=== PATIENT | female | born 1990 | race Caucasian/White ===

== ENCOUNTER 2024-09-07 04:25 | Outpatient (CLI) | payer OTHER, SELFPAY ==
[2024-09-07 15:11] LABS: HCT 35.6 % (36.0-46.0); HGB 11.5 g/dL (11.2-15.7); MCH 29.6 pg (27.0-33.0); MCHC 32.3 % (32.0-36.0); MCV 92 fL (80-95); MPV 10.4 fL (8.0-11.0); Platelet Count 234 10^3/uL (130-400); RBC 3.88 10^6/uL (3.93-5.22); RDW 13.0 % (11.7-14.6); RDW-SD 43.0 fL; WBC 16.15 10^3/uL (4.4-10.8)
[2024-09-07 15:26] LABS: Glucose,1 Hr (Glucola) 135 mg/dL (80-140)
== END 2024-09-07 04:26 | disposition home or self-care (01) ==
PROVIDERS: Visit Provider Advanced Practice Midwife
DX: Z34.92 Encounter for supervision of normal pregnancy, unspecified, second trimester (principal)
CPT/HCPCS: 36415; 82950; 85027; 86850; 86900; 86901

== ENCOUNTER 2024-09-14 03:42 | Outpatient (CLI) | payer OTHER, SELFPAY ==
[2024-09-14 08:26] LABS: Abs Immature Grans 0.32 10^3/uL (0.0-0.06); HCT 36.7 % (36.0-46.0); HGB 12.0 g/dL (11.2-15.7); Immature Grans % 2.2 %; MCH 29.6 pg (27.0-33.0); MCHC 32.7 % (32.0-36.0); MCV 91 fL (80-95); MPV 10.3 fL (8.0-11.0); Platelet Count 212 10^3/uL (130-400); RBC 4.05 10^6/uL (3.93-5.22); RDW 12.8 % (11.7-14.6); RDW-SD 42.0 fL; WBC 14.60 10^3/uL (4.4-10.8)
[2024-09-14 10:20] LABS: Glucose 1 Hour 151 mg/dL
== END 2024-09-14 03:43 | disposition home or self-care (01) ==
PROVIDERS: Visit Provider Advanced Practice Midwife
DX: O09.522 Supervision of elderly multigravida, second trimester (principal); D72.829 Elevated white blood cell count, unspecified
CPT/HCPCS: 36415; 82951; 85025

== ENCOUNTER 2024-10-12 01:49 | Outpatient (CLI) | payer OTHER, SELFPAY ==
--- NOTE | 2024-10-12 08:15 | DI.US_ITS ---
Exam(s) US OB JOSEFA WEIGHT EXAM: US OB JOSEFA WEIGHT CLINICAL HISTORY: Advanced maternal age,O09.529. TECHNIQUE: Transabdominal obstetrical ultrasound was performed. COMPARISON: No exams were available for comparison FINDINGS: There is a single viable intrauterine gestation with cardiac activity identified-118 bpm The fetus is presently in cephalic position . Amniotic fluid: There is a normal amount of amniotic fluid with an JOSEFA of 13.39cm. Placental location: The placenta is posterior grade 2,with no evidence of placenta previa. Dating parameters place this at approximately 32 weeks and 3 days gestational age, implying THADDEUS of 12/04/2024. BPD measures 32 weeks and 4 days HC measures 32 weeks and 6 days AC measures 32 weeks and 1 day FL measures 32 weeks and 1 day Estimated weight is 1933 gm-4 pounds 4 ounces Fetus is at the 42nd percentile on the Hadlock scale. IMPRESSION:: Viable 3rd trimester gestation, as described above. DATA REPOSITORY:
== END 2024-10-12 02:09 ==
LOC: DI 01:49
PROVIDERS: Visit Provider Obstetrics & Gynecology
DX: O09.523 Supervision of elderly multigravida, third trimester (principal); Z3A.32 32 weeks gestation of pregnancy
CPT/HCPCS: 76816

== ENCOUNTER 2024-11-09 17:22 | Outpatient (REF) | payer OTHER, SELFPAY | END 2024-11-09 17:23 | disposition home or self-care (01) | LOC: LBN 17:22 | PROVIDERS: Visit Provider Obstetrics & Gynecology | DX: Z34.93 Encounter for supervision of normal pregnancy, unspecified, third trimester (principal) | CPT/HCPCS: 87081 ==

== ENCOUNTER 2024-11-30 07:19 | Outpatient (CLI) | payer OTHER, SELFPAY ==
[2024-11-30 15:57] VITALS: BP 120/66; PULSE 110; TEMP 209.5; TEMP 98.6
--- NOTE | 2024-12-01 07:36 | W.OBNST ---
Date of service: 11/30/24 Time of Service: 17:00 NST Evaluation Reason for NST Reasons for Nonstress Test: ADVANCED MATERNAL AGE Gestational Age Gestational Age in Weeks and Days: 39 Weeks and 1Days Test and Monitor Explained Test/Monitor Explained: Test Explained, Monitor Explained and Patient Verbalized Understanding Vital Signs Blood Pressure: 120/66 Pulse: 110 Temperature: 209.5 F Urine Results Urine Protein: Negative Urine Ketones: Positive Urine Glucose: Negative Urine Blood: Negative NST Information Date on Monitor: 11/30/24 Time on Monitor: 16:05 Date off Monitor: 11/30/24 Time off Monitor: 16:25 Total Time on Monitor: 20 NST Interventions: PO Hydration NST Evaluation Patient States Movement: Present Variability: Moderate 6-25 bpm Accelerations: 15x15 Decelerations: None NST Results: Reactive Note Ultrasound Done: N/A. NST Note Note: Category 1, reactive NST NST Reviewed and Verified by: Chrissy Valdez
[2024-12-01 07:37] VITALS: BP 120/66; PULSE 110; TEMP 209.5; TEMP 98.6
== END 2024-11-30 16:36 ==
LOC: BCD 07:19 → OBS 15:27
PROVIDERS: Visit Provider Obstetrics & Gynecology
DX: Z3A.39 39 weeks gestation of pregnancy (principal); O09.523 Supervision of elderly multigravida, third trimester
CPT/HCPCS: 59025

== ENCOUNTER 2024-12-04 13:05 | Inpatient (IN) | payer OTHER, SELFPAY ==
--- NOTE | 2024-11-30 16:08 | W.PM.OBHPL1 ---
Date of service: 11/30/24 Time of Service: 16:09 Assessment and Plan Assessment and plan (1) Encounter for induction of labor: Status: Acute Assessment and plan: Schedule labor induction due to advanced maternal age at 39 weeks and 5 days. Cervical ripening followed by Pitocin augmentation as needed. Pain control as needed. (2) AMA (advanced maternal age) multigravida 35+: Status: Acute OB-HPI Labor/Delivery History of Present Illness Reason for Visit: per Cleo Chief Complaint: Scheduled Induction of Labor (Advanced maternal age) Indication for Induction: Other. THADDEUS Calculator Estimated Delivery Date Method Current WG Current Estimate 12/06/24 Ultrasound #1 39w 1d Other Estimates 11/27/24 LMP (Certain) 40w 3d 12/03/24 Ultrasound #2 39w 4d 12/07/24 Conception 39w 0d Comments: Patient will present to the presenter on 12/04/2024 for induction of labor. Treated with 39 weeks and 4 days at that point. Previous cervical examination revealed a cervix that was soft, 50%, mid position. Cervical ripening will be undertaken initially with misoprostol, followed by Enriquez balloon if necessary. All questions were answered. The risk, benefits, and alternatives were discussed. History of Present Expected Delivery Route/Plan MD care FOB - Jong - Apha 1 antitrypsin carrier (this is his first child). he has hypertension. Transferred care from [place] at 25 weeks [facility] Specific Issues/Plan 1. AMA - normal genetic testing. 32 week growth US vtx, 41 % 2. 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 3. Increased preeclampsia risk - taking ASA daily. 4. glucola at 27 wks 135, 3 hr GTT nml x4 5. WBC at 27 wks 16, will recheck in 1 wk=14.6 *Scheduled for NST on Thursday, 11/30 and IOL on 12/04 at 1 pm. Informed Consent Informed Consent: Induction of Labor Review of Systems All systems reviewed & are unremarkable except as noted in HPI and below Eyes Eyes: Reports as per HPI and Reports system reviewed and no additional complaints, except as documented ENT Ears, Nose, Mouth, and Throat: Reports system reviewed and no additional complaints, except as documented and Reports as per HPI Cardiovascular Cardiovascular: Reports system reviewed and no additional complaints, except as documented, Denies chest pain and Denies irregular heart rhythm Respiratory Respiratory: Reports system reviewed and no additional complaints, except as documented, Denies chest congestion and Denies cough Gastrointestinal Gastrointestinal: Reports system reviewed and no additional complaints, except as documented Genitourinary Genitourinary: Reports system reviewed and no additional complaints, except as documented Neurologic Neurologic: Reports system reviewed and no additional complaints, except as documented PFSH All Active Problems (Updated 11/30/24 @ 16:12 by Chrissy Valdez DO) Encounter for induction of labor (Acute) Leukocytosis, unspecified (Acute) AMA (advanced maternal age) multigravida 35+ (Acute) (Acute) Medical History (Updated 11/30/24 @ 16:12 by Chrissy Valdez DO) High cholesterol while on OCs.HDL high 200s. 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 Sexually active: Yes Current gender identity: female What is your relationship status?: Panel score (0-1 are the most socially isolated patients): 1 What type of physical activity do you participate in: regular exercise Duration: 30-45 minutes/day Frequency: daily Seatbelt use: always Helmet use: Yes Do you feel safe at home: Yes History History 2 Para 0 Hx # Term Pregnancies Multiple births Hx # Pregnancies Ectopic pregnancies AB induced Hx Number of Living Children AB spontaneous 2 Meds Allergies and Home Medications Allergies Allergy/AdvReac Type Severity Reaction Status Date / Time No Known Allergies Allergy Verified 11/30/24 15:46 Home Medications ?Medication ?Instructions ?Recorded ?Confirmed ?Type aspirin 81 mg tablet 81 mg PO DAILY 08/25/24 11/30/24 History fexofenadine 60 mg tablet (Ruby 60 mg PO DAILY 08/25/24 11/30/24 History Allergy) vits no.126-ferrous fum tab PO DAILY 08/25/24 11/30/24 History 28 mg iron-folic acid 800 mcg tablet (Classic ) RSV vac, preF A and preF B(PF) 120 0.5 ml IM ONCE #1 ea 11/15/24 11/30/24 Rx mcg/0.5 mL IM solution (Abrysvo (PF)) Exam Physical Exam Vital signs: blood pressure is 120/72. heart tones 130s Vital Signs Reviewed: Yes Constitutional Constitutional: no acute distress Detailed Labor and Delivery Exam Dilation: 0.05 station: -2 Cervix position: anterior Consistency: soft Domínguez Score: Cervical Points Exam 0 1 2 3 Dilation Closed 1-2cm 3-4 cm 5-6cm Effacement 0-30% 40-50% 60-70% 80% Consistency Firm Medium Soft Station -3 -2 -1,0 +1,+2 Position Posterior Mid Anterior DOMÍNGUEZ Score(Cervical Ripeness Score): 5 Amniotic Membrane Status: Intact HEENT Exam HEENT Exam: Normal Neck Exam Neck Exam: Normal Chest/Brest/Axilla Exam Chest Exam: Normal Respiratory Exam Respiratory Exam: Normal Cardiovascular Exam Cardiovascular Exam: Normal Abdominal Exam Abdominal Exam: Normal (Gravid, vertex, fundal height 37 cm) Exam Exam: Normal Extremities Exam Extremities Exam: Normal Back/Spine/Pelvis Exam Pelvis Adequate: Yes Psychiatric Exam Psychiatric Exam: Normal Risk Assessment Risk for Pre-Eclampsia Date Initiated/Initials: Taking ASA Yes, if one or more: NEGATIVE FOR: Hx Pre-E/Gest HTN, Chronic HTN, Multiple Gestation, Pre-gestational DM, Renal Disease, Systemic Lupus or APA Syndrome Yes, if 2 or more: POSITIVE FOR: Nulliparity and Age>= 35 yrs; NEGATIVE FOR: >10yr btwn pregnancies, BMI>30, ethinicty, Mother/Sister w/ Pre-E or Previous IUGR Risk for Post- Hemorrhage Initial: NEGATIVE FOR: Multiple Gestation, Previous PPH, Known Clotting Deficiency, Grand Multiparity or Anticoagulation Risks Reviewed Risks Reviewed Upon Admission: Yes
[2024-12-04] VITALS (30 sets, daily range): BP systolic 102–127; BP diastolic 57–79; PULSE 75–103; RESP 16; TEMP 36.4–36.9; O2SAT 95–98
[2024-12-04 14:14] LABS: Abs Immature Grans 0.22 10^3/uL (0.0-0.06); HCT 38.5 % (36.0-46.0); HGB 12.7 g/dL (11.2-15.7); Immature Grans % 1.7 %; MCH 29.1 pg (27.0-33.0); MCHC 33.0 % (32.0-36.0); MCV 88 fL (80-95); MPV 10.2 fL (8.0-11.0); Platelet Count 212 10^3/uL (130-400); RBC 4.36 10^6/uL (3.93-5.22); RDW 13.7 % (11.7-14.6); RDW-SD 44.1 fL; WBC 13.18 10^3/uL (4.4-10.8)
[2024-12-04] MEDS: Normal Saline Flush 10 ML SYR IVP (15:10)
[2024-12-04] MEDS: miSOPROStol 25 MCG TAB VG ×2 (15:22→20:15)
--- NOTE | 2024-12-04 15:34 | W.PM.OBNL1 ---
Date of service: 12/04/24 Time of Service: 15:34 Informed Consent Informed Consent: Induction of Labor Pelvic Exam Dilation: 0.5 Effacement (%): 50 station: -2 Cervix Position: posterior Consistency: soft Fetus A Monitor: External (US) Heart Rate Baseline: 120 Presentation: Vertex Variability: Moderate (6-25 BPM) Assessment and Plan Assessment and plan (1) AMA (advanced maternal age) multigravida 35+: Status: Acute Assessment and plan: Labor induction at term due to advanced maternal age. Misoprostol first. Pitocin versus Enriquez balloon will follow. All questions answered. (2) Encounter for induction of labor: Status: Acute Objective Abnormal lab results 12/04/24 Range/Units 14:05 WBC 13.18 H (4.4-10.8) 10^3/uL Absolute Neutrophils 9.81 H (1.2-6.7) 10^3/uL Temp Pulse Resp BP 97.5 F L 103 H 16 110/75 12/04/24 13:04 12/04/24 15:25 12/04/24 13:04 12/04/24 15:25 Laboratory Results WBC 13.18 10^3/uL (4.4-10.8) H 12/04/24 14:05 RBC 4.36 10^6/uL (3.93-5.22) 12/04/24 14:05 Hgb 12.7 g/dL (11.2-15.7) 12/04/24 14:05 Hct 38.5 % (36.0-46.0) 12/04/24 14:05 MCV 88 fL (80-95) 12/04/24 14:05 MCH 29.1 pg (27.0-33.0) 12/04/24 14:05 MCHC 33.0 % (32.0-36.0) 12/04/24 14:05 RDW 13.7 % (11.7-14.6) 12/04/24 14:05 Plt Count 212 10^3/uL (130-400) 12/04/24 14:05 MPV 10.2 fL (8.0-11.0) 12/04/24 14:05 Immature Gran % 1.7 % 12/04/24 14:05 Neutrophils % 74.4 % 12/04/24 14:05 Lymphocytes % 17.8 % 12/04/24 14:05 Monocytes % 5.0 % 12/04/24 14:05 Eosinophils % 0.6 % 12/04/24 14:05 Basophils % 0.5 % 12/04/24 14:05 Nucleated RBC % 0.0 % (0.0-0.3) 12/04/24 14:05 Absolute Neutrophils 9.81 10^3/uL (1.2-6.7) H 12/04/24 14:05 Absolute Lymphocytes 2.35 10^3/uL (1.2-3.4) 12/04/24 14:05 Absolute Monocytes 0.66 10^3/uL (0.1-0.8) 12/04/24 14:05 Absolute Eosinophils 0.08 10^3/uL (0.0-0.7) 12/04/24 14:05 Absolute Basophils 0.07 10^3/uL (0.0-0.2) 12/04/24 14:05 ABO/Rh A Positive 12/04/24 14:05 Antibody Screen NEGATIVE 12/04/24 14:05 Objective Narrative Objective Narrative: Patient seen and examined. Doing well. Nasal Postel, first dose 25 mcg intravaginally placed without difficulty. Subjective Interval history since last seen: Patient seen and examined this afternoon. Doing well. heart rate tracing is a category 1 strip. She has occasional irregular contractions. Otherwise she is feeling well. She is here for labor induction at term due to advanced maternal age. Her cervix was checked and fingertip, 50%, posterior, attempt at Cook catheter unsuccessful. Will give 1 dose of misoprostol, 25 mcg vaginally and reassess in 3 to 4 hours. Results Hemoglobin/Hematocrit: Hgb 12.7 g/dL (11.2-15.7) 12/04/24 14:05 Hct 38.5 % (36.0-46.0) 12/04/24 14:05 Abnormal Lab Findings: Abnormal Labs 12/04/24 14:05 WBC 13.18 H Absolute Neutrophils 9.81 H
--- NOTE | 2024-12-04 20:38 | W.PM.OBNL1 ---
Date of service: 12/04/24 Time of Service: 20:38 Informed Consent Informed Consent: Induction of Labor Pelvic Exam Dilation: 1 Effacement (%): 50 station: -2 Cervix Position: anterior Consistency: soft Assessment and Plan Assessment and plan (1) AMA (advanced maternal age) multigravida 35+: Status: Acute Assessment and plan: Labor induction at term due to advanced maternal age. Enriquez balloon inserted without difficulty. Postel, dose #2 given intravaginally. Continue to monitor. Anticipate vaginal . Pain control as desired. (2) Encounter for induction of labor: Status: Acute Objective Abnormal lab results 12/04/24 Range/Units 14:05 WBC 13.18 H (4.4-10.8) 10^3/uL Absolute Neutrophils 9.81 H (1.2-6.7) 10^3/uL Temp Pulse Resp BP 97.5 F L 92 H 16 116/71 12/04/24 13:04 12/04/24 19:14 12/04/24 13:04 12/04/24 19:14 Laboratory Results WBC 13.18 10^3/uL (4.4-10.8) H 12/04/24 14:05 RBC 4.36 10^6/uL (3.93-5.22) 12/04/24 14:05 Hgb 12.7 g/dL (11.2-15.7) 12/04/24 14:05 Hct 38.5 % (36.0-46.0) 12/04/24 14:05 MCV 88 fL (80-95) 12/04/24 14:05 MCH 29.1 pg (27.0-33.0) 12/04/24 14:05 MCHC 33.0 % (32.0-36.0) 12/04/24 14:05 RDW 13.7 % (11.7-14.6) 12/04/24 14:05 Plt Count 212 10^3/uL (130-400) 12/04/24 14:05 MPV 10.2 fL (8.0-11.0) 12/04/24 14:05 Immature Gran % 1.7 % 12/04/24 14:05 Neutrophils % 74.4 % 12/04/24 14:05 Lymphocytes % 17.8 % 12/04/24 14:05 Monocytes % 5.0 % 12/04/24 14:05 Eosinophils % 0.6 % 12/04/24 14:05 Basophils % 0.5 % 12/04/24 14:05 Nucleated RBC % 0.0 % (0.0-0.3) 12/04/24 14:05 Absolute Neutrophils 9.81 10^3/uL (1.2-6.7) H 12/04/24 14:05 Absolute Lymphocytes 2.35 10^3/uL (1.2-3.4) 12/04/24 14:05 Absolute Monocytes 0.66 10^3/uL (0.1-0.8) 12/04/24 14:05 Absolute Eosinophils 0.08 10^3/uL (0.0-0.7) 12/04/24 14:05 Absolute Basophils 0.07 10^3/uL (0.0-0.2) 12/04/24 14:05 ABO/Rh A Positive 12/04/24 14:05 Antibody Screen NEGATIVE 12/04/24 14:05 Subjective Interval history since last seen: Patient seen and examined. Feeling occasional contractions. Speculum inserted for placement of Cook balloon. 60 cc of saline in the uterine balloon and 60 cc of saline in the vaginal balloon. Patient tolerated procedure without difficulty. heart rate in the 1 teens to 120s with moderate variability overall reassuring. Doing well. Vital signs are stable. Anticipate vaginal . Results Hemoglobin/Hematocrit: Hgb 12.7 g/dL (11.2-15.7) 12/04/24 14:05 Hct 38.5 % (36.0-46.0) 12/04/24 14:05 Abnormal Lab Findings: Abnormal Labs 12/04/24 14:05 WBC 13.18 H Absolute Neutrophils 9.81 H
[2024-12-04] MEDS: Lactated Ringers 1,000 ML 500 ML IV (22:30)
[2024-12-04] MEDS: FentaNYL/ROPIvacaine 2 mcg/ml and 0.1% 200 ML CADD Cassette EP (23:40)
--- NOTE | 2024-12-04 23:45 | ANES.NEUR_ITS ---
Epidural/Spinal Catheter Date Performed: 12/04/24 Procedure Start: 22:55 Procedure Stop: 23:40 Requesting Provider: Chrissy Valdez Procedure Location: Obstetrics Reason Performed: Labor Epidural Standard Monitors Applied: Blood Pressure, SpO2 and See EMR for corresponding vital signs Patient Position: Sitting Sedation Given (Indicate Dose Given): No Sedation given Patient Mental Status: Awake Sterility: Hand Hygiene, Surgical Cap, Surgical Mask, Sterile Gloves, Sterile Drape/Sheet and Chlorhexidine Procedure Location: L3-L4 Interspace Epidural Needle: Tuohy 18 Gauge Needle Length: 4 Inch Needle Approach: Midline Epidural Procedure: Skin Prepped, Sterile Drape Placed, 1% Lidocaine to skin and subcutaneous tissue with 25G needle, Tuohy Needle placed, AILYN to Saline Used, Epidural Catheter Placed, Negative Heme, Negative CSF Flow and Tuohy Needle Removed Catheter Placed?: Catheter Placed Test Dose (Indicate Dose Given): 3ml 1.5% Lidocaine with 1:200K Epinephrine Given and Negative Test Dose Loss of Resistance Depth (cm): 7 Catheter depth at skin (cm): 13 Dressing: Sorbaview Dressing Placed, Mastisol Used and Dressing reinforced with Tape Epidural Provider Bolus (Indicate Dose Given): Total Ropivacaine 0.1% with Fentanyl 2mcg/ml Given from pump. (ml) Dose:: 1mL @2333, second bolus of 1mL 2338 Additives (Indicate Dose Given ): None Infusion Medication: Medication Infusion Began Medication Infusion: Ropivacaine 0.1% with Fentanyl 2mcg/ml Maintenance Infusion Rate (ml/hour): 10 PCEA Bolus Dose (ml): 5 Block Level: N/A Paresthesia: Left Paresthesia Duration: Transient Ultrasound: Not Used Number of Attempts (See previous attempts in note section): 2 Procedure Tolerated: Patient tolerated well Procedure Outcome: Successful Procedure Comment:: On first attempt, patient noted that touhy needle felt left-sided. Needle was removed. Additional LA was administered to the skin at the same interspace and the epidural space was accessed with AILYN to saline. Patient reported transient left sided paresthesia with catheter placement, but verbally reported it fully resolved. After administration of the test dose, patient reported some left- sided left heaviness, but was still able to move her legs without weakness to physical exam. Given the patient reports, decision made to bolus epidural catheter with 1mL, wait 5 minutes, then bolus with an additional 1mL. Patient was repositioned to right side and reported full sensation. Epidural pump started at above infusion rate. Discussed negative test dose findings and stable vital signs with the patient and , but would proceed slowly with epidural dosing and educated on the signs of a high epidural to include tinging in her hands and any difficulty breathing--verbalized understanding back. Epidural infusion started. and nurse at bedside. Performed By: Narda Montiel
[2024-12-05] VITALS (47 sets, daily range): BP systolic 93–124; BP diastolic 51–77; PULSE 69–113; RESP 16–18; TEMP 36.6–36.8; O2SAT 95–96; BMI 28.3
--- NOTE | 2024-12-05 00:26 | ANES.PREOP_ITS ---
General Info Date of Service Date Performed: 12/04/24 Height: 5 ft 8 in Weight: 84.368 kg Body Mass Index (BMI): 28.3 Meds Allergies and Home Medications Allergies Allergy/AdvReac Type Severity Reaction Status Date / Time No Known Allergies Allergy Verified 11/30/24 15:46 Home Medication ?Medication ?Instructions ?Recorded aspirin 81 mg tablet 81 mg PO DAILY 08/25/24 fexofenadine 60 mg tablet (Ruby 60 mg PO DAILY 08/07 12/01 Allergy) vits no.126-ferrous fum tab PO DAILY 08/25/24 28 mg iron-folic acid 800 mcg tablet (Classic ) RSV vac, preF A and preF B(PF) 120 0.5 ml IM ONCE #1 e a 11/15/24 mcg/0.5 mL IM solution (Abrysvo (PF)) Current Visit Medications: Current Medications Generic Name Dose Route Start Last Admin Trade Name Freq PRN Reason Stop Dose Admin Ephedrine Sulfate 5 mg 12/04/24 23:43 Ephedrine 50 Mg/Ml Vial IVP DIRECTED PRN Fentanyl/Ropivacaine 200 ml 12/04/24 22:45 12/04/24 23:40 Fentanyl/Ropivacaine 2 Mcg/Ml And 0.1% 200 Ml Cadd Cassette EP 200 ml DIRECTED ESTHER Administration Fentanyl/Ropivacaine 200 ml 12/04/24 23:45 Fentanyl/Ropivacaine 2 Mcg/Ml And 0.1% 200 Ml Cadd Cassette EP DIRECTED ESTHER Fentanyl/Ropivacaine 200 ml 12/04/24 23:45 Fentanyl/Ropivacaine 2 Mcg/Ml And 0.1% 200 Ml Cadd Cassette EP DIRECTED ESTHER Ringer's Solution 1,000 mls @ 200 mls/hr 12/04/24 13:00 12/04/24 22:30 IV 500 mls/hr INFUSION ESTHER Administration Naloxone HCl 2 mg/ Sodium 500 mls @ 10.546 mls/hr 12/04/24 23:43 Chloride IV INFUSION PRN pruritis 0.5 MCG/KG/HR Ringer's Solution 500 mls @ 500 mls/hr 12/04/24 23:43 IV 12/05/24 00:42 BOLUS ONE IV Miscellaneous Supplies 1 each 12/04/24 13:00 Iv Access IV DIRECTED [facility] Misoprostol 25 mcg 12/04/24 13:00 12/04/24 15:22 Misoprostol 25 Mcg Tab VG 25 mcg Q6H ESTHER Administration Naloxone HCl 0 mg 12/04/24 23:43 Naloxone 0.4 Mg/Ml Vial IVP DIRECTED PRN Naloxone HCl 0.04 mg 12/04/24 23:43 Naloxone 0.4 Mg/Ml Vial IVP PRN PRN PRURITIS Ondansetron HCl 4 mg 12/04/24 23:43 Ondansetron 4 Mg/2 Ml Vial IVP Q6H PRN PRN Nausea Sodium Chloride 0 ml 12/04/24 13:00 Normal Saline Flush 10 Ml Syr IVP PRN PRN Sodium Chloride 0 ml 12/04/24 13:00 12/04/24 15:10 Normal Saline Flush 10 Ml Syr IVP 20 ml BID ESTHER Administration Sodium Chloride 0 ml 12/04/24 13:00 Normal Saline 10 Ml Vial IJ DIRECTED PRN Terbutaline Sulfate 0.25 mg 12/04/24 13:00 Terbutaline 1 Mg/Ml Vial SC PRN PRN PFSH Active Problems Active Problems: Problem Status Onset Code Encounter for induction of labor Acute Z34.90 Leukocytosis, unspecified Acute D72.829 AMA (advanced maternal age) multigravida 35+ Acute O09.529 Acute Z34.90 Medical History Medical History (Updated 11/30/24 @ 16:12 by Chrissy Valdez DO) High cholesterol while on OCs.HDL high 200s. Tobacco Smoking/Tobacco Use Status: Never Passive smoking exposure: No Second hand exposure: No Alcohol Alcohol Intake: never Substance Use Substance use: Never Substance use type: does not use Prental History History 2 3 Para 0 Hx # Term Pregnancies Multiple births Hx # Pregnancies Ectopic pregnancies AB induced Hx Number of Living Children AB spontaneous 2 Vital Signs and Lab Results Vital Signs Most Recent Vital Signs in EMR: Most Recent Vital Signs Temp Pulse Resp BP Pulse Ox 36.7 C 93 H 16 124/60 95 12/04/24 19:15 12/05/24 00:15 12/04/24 19:15 12/05/24 00:15 12/05/24 00:14 Lab Results 12/04/24 14:05 Blood Type / Crossmatch: 2 Antibody Screen NEGATIVE 12/04/24 Complete Blood Count: 2 WBC, (4.4-10.8) 13.18 10^3/uL H 12/04/24, 14:05 RBC, (3.93-5.22) 4.36 10^6/uL 12/04/24, 14:05 Hgb, (11.2-15.7) 12.7 g/dL 12/04/24, 14:05 Hct, (36.0-46.0) 38.5 % 12/04/24, 14:05 Plt Count, (130-400) 212 10^3/uL 12/04/24, 14:05 Anesthesia Assessment and Plan Anesthesia History Personal History: No History of General Anesthesia Family History: No Family History of Anesthesia Complications Exercise Tolerance Exercise Tolerance: Metabolic Equivalents>4 Pertinent Negatives Pertinent Negatives: No Major Cardiovascular Symptoms or Complaints and No Major Pulmonary Symptoms or Complaints Cardiac & Pulmonary Exam Cardiac Exam: Normal S1/S2 Heart Sounds Pulmonary Exam: Clear Bilateral Breath Sounds Implantable Cardiac Device Does patient have a Pacemaker or an ICD?: No Airway Exam Known Difficult Airway: No Mallampati Class: 1 Mouth Opening: Normal (> 3cm) Thyromental Distance: Greater than 3 cm Neck Range of Motion: Full ROM Neck Circumference: Normal Teeth Condition: Normal Dentition ASA Classification ASA Score: ASA 2 Emergency Case?: No NPO Status NPO Status: Full Stomach Status Status: Confirmed Anesthesia Plan Resuscitation Status: Full Code Anesthesia Technique: Epidural Anesthesia Airway Planned: Natural Airway Monitors Used: Standard Monitors
[2024-12-05] MEDS: miSOPROStol 25 MCG TAB VG (02:52)
--- NOTE | 2024-12-05 07:55 | W.PM.OBNL1 ---
Date of service: 12/05/24 Time of Service: 07:55 Informed Consent Informed Consent: Induction of Labor Assessment and Plan Assessment and plan (1) Encounter for induction of labor: Status: Acute Assessment and plan: Term labor induction. Now in active labor, 5 cm, artificial rupture membranes for clear fluid. Will reevaluate in 1 to 2 hours. If no further progress, Pitocin augmentation. I would anticipate a normal vaginal . All questions were answered for her and her . (2) AMA (advanced maternal age) multigravida 35+: Status: Acute Objective Abnormal lab results 12/04/24 Range/Units 14:05 WBC 13.18 H (4.4-10.8) 10^3/uL Absolute Neutrophils 9.81 H (1.2-6.7) 10^3/uL Temp Pulse Resp BP Pulse Ox 98.2 F 79 16 120/77 95 12/05/24 07:36 12/05/24 07:43 12/05/24 07:32 12/05/24 07:43 12/05/24 00:14 Laboratory Results WBC 13.18 10^3/uL (4.4-10.8) H 12/04/24 14:05 RBC 4.36 10^6/uL (3.93-5.22) 12/04/24 14:05 Hgb 12.7 g/dL (11.2-15.7) 12/04/24 14:05 Hct 38.5 % (36.0-46.0) 12/04/24 14:05 MCV 88 fL (80-95) 12/04/24 14:05 MCH 29.1 pg (27.0-33.0) 12/04/24 14:05 MCHC 33.0 % (32.0-36.0) 12/04/24 14:05 RDW 13.7 % (11.7-14.6) 12/04/24 14:05 Plt Count 212 10^3/uL (130-400) 12/04/24 14:05 MPV 10.2 fL (8.0-11.0) 12/04/24 14:05 Immature Gran % 1.7 % 12/04/24 14:05 Neutrophils % 74.4 % 12/04/24 14:05 Lymphocytes % 17.8 % 12/04/24 14:05 Monocytes % 5.0 % 12/04/24 14:05 Eosinophils % 0.6 % 12/04/24 14:05 Basophils % 0.5 % 12/04/24 14:05 Nucleated RBC % 0.0 % (0.0-0.3) 12/04/24 14:05 Absolute Neutrophils 9.81 10^3/uL (1.2-6.7) H 12/04/24 14:05 Absolute Lymphocytes 2.35 10^3/uL (1.2-3.4) 12/04/24 14:05 Absolute Monocytes 0.66 10^3/uL (0.1-0.8) 12/04/24 14:05 Absolute Eosinophils 0.08 10^3/uL (0.0-0.7) 12/04/24 14:05 Absolute Basophils 0.07 10^3/uL (0.0-0.2) 12/04/24 14:05 ABO/Rh A Positive 12/04/24 14:05 Antibody Screen NEGATIVE 12/04/24 14:05 Subjective Interval history since last seen: Patient seen and examined this morning. Comfortable with epidural. Cook catheter removed. Cervix is 5 cm, 90%, artificial rupture of membranes for clear fluid. vertex is at a +1 station. heart tones are 110-120 with moderate variability, overall category 1 strip. Results Hemoglobin/Hematocrit: Hgb 12.7 g/dL (11.2-15.7) 12/04/24 14:05 Hct 38.5 % (36.0-46.0) 12/04/24 14:05 Abnormal Lab Findings: Abnormal Labs 12/04/24 14:05 WBC 13.18 H Absolute Neutrophils 9.81 H
--- NOTE | 2024-12-05 11:11 | W.PM.OBNL1 ---
Date of service: 12/05/24 Time of Service: 11:11 Informed Consent Informed Consent: Induction of Labor Pelvic Exam Dilation: 7 Effacement (%): 90 station: +1 Position: PJ Cervix Position: anterior Consistency: soft Assessment and Plan Assessment and plan (1) AMA (advanced maternal age) multigravida 35+: Status: Acute Assessment and plan: Induction of labor for advanced maternal age. Appropriate progress. Will recheck and reevaluate cervix in approximately 2 hours. If unchanged, would consider Pitocin augmentation. In the meantime, spinning babies and position changes. Anticipate vaginal (2) Encounter for induction of labor: Status: Acute Objective Abnormal lab results 12/04/24 Range/Units 14:05 WBC 13.18 H (4.4-10.8) 10^3/uL Absolute Neutrophils 9.81 H (1.2-6.7) 10^3/uL Temp Pulse Resp BP Pulse Ox 98.2 F 90 16 113/76 95 12/05/24 07:36 12/05/24 09:43 12/05/24 10:32 12/05/24 09:43 12/05/24 00:14 Laboratory Results WBC 13.18 10^3/uL (4.4-10.8) H 12/04/24 14:05 RBC 4.36 10^6/uL (3.93-5.22) 12/04/24 14:05 Hgb 12.7 g/dL (11.2-15.7) 12/04/24 14:05 Hct 38.5 % (36.0-46.0) 12/04/24 14:05 MCV 88 fL (80-95) 12/04/24 14:05 MCH 29.1 pg (27.0-33.0) 12/04/24 14:05 MCHC 33.0 % (32.0-36.0) 12/04/24 14:05 RDW 13.7 % (11.7-14.6) 12/04/24 14:05 Plt Count 212 10^3/uL (130-400) 12/04/24 14:05 MPV 10.2 fL (8.0-11.0) 12/04/24 14:05 Immature Gran % 1.7 % 12/04/24 14:05 Neutrophils % 74.4 % 12/04/24 14:05 Lymphocytes % 17.8 % 12/04/24 14:05 Monocytes % 5.0 % 12/04/24 14:05 Eosinophils % 0.6 % 12/04/24 14:05 Basophils % 0.5 % 12/04/24 14:05 Nucleated RBC % 0.0 % (0.0-0.3) 12/04/24 14:05 Absolute Neutrophils 9.81 10^3/uL (1.2-6.7) H 12/04/24 14:05 Absolute Lymphocytes 2.35 10^3/uL (1.2-3.4) 12/04/24 14:05 Absolute Monocytes 0.66 10^3/uL (0.1-0.8) 12/04/24 14:05 Absolute Eosinophils 0.08 10^3/uL (0.0-0.7) 12/04/24 14:05 Absolute Basophils 0.07 10^3/uL (0.0-0.2) 12/04/24 14:05 ABO/Rh A Positive 12/04/24 14:05 Antibody Screen NEGATIVE 12/04/24 14:05 Subjective Interval history since last seen: Patient seen and examined this morning. Very comfortable with her epidural. She was feeling some pressure on the right side and used her patient controlled anesthesia for her epidural with good relief. She has a category 1 heart rate tracing with contractions every 3 to 4 minutes. Results Hemoglobin/Hematocrit: Hgb 12.7 g/dL (11.2-15.7) 12/04/24 14:05 Hct 38.5 % (36.0-46.0) 12/04/24 14:05 Abnormal Lab Findings: Abnormal Labs 12/04/24 14:05 WBC 13.18 H Absolute Neutrophils 9.81 H
--- NOTE | 2024-12-05 13:44 | W.OBDELIVERY ---
Date of service: 12/05/24 Time of Service: 13:45 OB Labor/ Delivery Information Baby A Delivery Delivery Method: Spontaneaous Presentation: Cephalic Vertex Position: Right Occipital Anterior Cord Description-Baby A: 3 Vessels Amniotic Fluid: Clear Quantitative Blood Loss: 320 Delivery Outcome: Liveborn Infant Complications: None Note: Patient was found to have complete cervical dilation and a vertex at the +1 station. She had appropriate pain control with her epidural. With good maternal effort, she pushed for 1 hour. She pushed vertex over an intact perineum. There was no evidence of nuchal cord. Shoulders followed with ease. A three-vessel cord was noted and clamped and cut after delayed cord clamping for 4 minutes. Cord blood sample was obtained. The placenta delivered spontaneously and was noted to be intact. As of note on inspection, there was an accessory lobe which also appeared to be intact. The patient had fundal massage and a small amount of lower uterine segment atony. This resolved with appropriate stimulation and Pitocin. She did have 1 single area at the left sulcus just beyond the hymenal ring that required 1 stitch of 3-0 Vicryl for hemostasis. Uterus is firm and 2 cm below the umbilicus postdelivery. Mom and baby are in stable condition and bonding well. Providers Doctor: Chrissy Valdez Manager Operations And Procurement: Narda Montiel Nurse: Anita Anders Nurse: Kerline Prescott Labor/Delivery Information Number of Babies in Womb: 1 Steroids Given: None Reason Steroids Not Administered: N/A Group Beta Strep: Negative Antibiotics Administered: No Rubella Status: Immune Blood Type: A+ Varicella Immunity: Immune Maternal Complications: None Shoulder Dystocia: No Stages of Labor Onset of Labor Date: 12/05/24 Onset of Labor Time: 07:30 Complete Dilatation Date: 12/05/24 Complete Dilatation Time: 12:12 Labor - Stage 1 Duration: 4 hours and 42 minutes ROM Baby A: 12/05/24 ROM Baby A: 07: ROM Total Time- Baby A: [id number] Infant Delivery Date-Baby A: 12/05/24 Infant Delivery Time-Baby A: 13:12 Labor Stage 2 Duration: 1 hours and 0 minutes Placenta Delivery Date-Baby A: 12/05/24 Placenta Delivery Time-Baby A: 13:20 Labor-Stage 3 Duration: 8 minutes Total Length of Labor-Baby A: 5 hours and 42 minutes Placenta Cultured: No Placenta Status: Delivered Baby A Infant Gender: Female Gestational Status: Term (39-41.6 wks) Gestational Age in Weeks/Days: 39 Weeks and 6 Days Score-1 Minute Interval(Baby A) Heart Rate-1 minute: 100 BPM or Greater Respiratory Effort- 1 minute: Spontaneous/Strong Cry Muscle Tone-1 minute: Active Movement Reflex Response-1 minute: Prompt Response Color-1 minute: Pallor or Cyanosis Total Score-1 minute: 8 Score-5 Minute Interval(Baby A) Heart Rate- 5 minute: 100 BPM or Greater Respiratory Effort-5 minute: Spontaneous/Strong Cry Muscle Tone-5 minute: Active Movement Reflex Response-5 minute: Prompt Response Color-5 minute: Bluish Hands or Feet Total Score- 5 minute: 9
--- NOTE | 2024-12-05 15:40 | W.ANESNEU ---
Epidural/Spinal Cath. Removal Date Performed: 12/05/24 Procedure Time: 15:30 Catheter Removal Type: Epidural Catheter Procedure Location: Obstetrics Patient Position: Sitting Catheter Removal Procedure: Dressing Removed, Catheter Removed without Resistance and Catheter Tip Intact Paresthesia: None Procedure Tolerated: No Complications and Patient tolerated well Procedure Outcome: Successful Performed By: Sancho Haley
--- NOTE | 2024-12-05 15:41 | W.ANESPOSTOP ---
Postoperative Evaluation Date, Time and Location Date Performed: 12/05/24 Time Performed: 15:35 Patient Location: Obstetrics Vital Signs Most Recent Imported Vital Signs: Most Recent Vital Signs Temp Pulse Resp BP Pulse Ox 36.8 C 97 H 16 109/63 95 12/05/24 07:36 12/05/24 15:08 12/05/24 15:31 12/05/24 15:08 12/05/24 00:14 Pain Score Most Recent Pain Score: Most Recent Pain Score Pain Level [Lower Abdomen] 0 12/04/24 19:15 Pain Level 0 12/05/24 11:37 Assessment Mental Status: Awake (Alert & Oriented to Patient Baseline) Airway and Respiratory Function: Patent airway with normal (patient baseline) respiratory exam Cardiovascular Function: Hemodynamically Stable Hydration Status: Adequately Hydrated Nausea & Vomiting: No Nausea or Vomiting Pain: Pt. Denies Any Pain Peripheral Nerve Block: Patient did not receive a nerve block
[2024-12-06] MEDS: Acetaminophen 325 MG TAB 650 MG PO ×2 (03:54→12:33)
[2024-12-06] MEDS: Ibuprofen 600 MG TAB PO ×2 (03:55→12:33)
[2024-12-06 07:55] VITALS: BP 122/74; PULSE 88; RESP 16; TEMP 36.7; O2SAT 99
--- NOTE | 2024-12-06 07:58 | W.PM.OBPNV1 ---
Date of service: 12/06/24 Time of Service: 07:58 Assessment and Plan Assessment and plan (1) Normal spontaneous vaginal delivery: Status: Acute Assessment and plan: day 1 status postnormal spontaneous vaginal . Doing well. Discharge home. Follow-up in 2 and 6 weeks. All questions answered. Exam Physical Exam Vital signs: Temp Pulse Resp BP Pulse Ox 98 F 102 H 18 109/75 95 12/05/24 19:30 12/05/24 19:30 12/05/24 19:30 12/05/24 19:30 12/05/24 00:14 Vital Signs Reviewed: Yes Notable Details: Slight tachycardia Constitutional Constitutional: no acute distress HEENT Exam HEENT Exam: Normal Neck Exam Neck Exam: Normal Respiratory Exam Respiratory Exam: Normal Cardiovascular Exam Cardiovascular Exam: Normal Abdominal Exam Comments: Soft, nontender, uterus firm Fundal Exam Fundus: Below Umbilicus and Firm Extremities Exam Extremity Exam: Normal; negative Calf Tenderness Results Hemoglobin/Hematocrit: Hgb 12.7 g/dL (11.2-15.7) 12/04/24 14:05 Hct 38.5 % (36.0-46.0) 12/04/24 14:05 Abnormal Lab Findings: Abnormal Labs 12/04/24 14:05 WBC 13.18 H Absolute Neutrophils 9.81 H
--- NOTE | 2024-12-06 08:01 | W.PM.OBDISCH ---
Date of service: 12/06/24 Time of Service: 08:01 DS: Diagnosis Discharge Diagnosis (1) Normal spontaneous vaginal delivery: Status: Acute Asessment and Plan: day #1 status post labor induction with vaginal . Discharge home today. Follow-up in 2 and 6 weeks. All questions answered Discharge Plan Disposition Patient Disposition: Home Condition: Good Discharge Details Reason For Visit: at 39 Weeks and 5 Days Admit Date/Time: 12/04/24 13:05 Admit Provider: Chrissy Valdez Attending Provider: Chrissy Valdez Primary Care Provider: Unknown,Unknown Hospital Course Hospital Course: Patient presented at term for labor induction due to AMA. She received 1 dose of Vasoprost all followed by Enriquez balloon with misoprostol and had artificial rupture of membranes for clear fluid. She progressed to completely dilated and with appropriate epidural anesthesia delivered a viable female . She had uncomplicated course. She is discharged to home day #1 status post vaginal . Home Meds and New Rx's Prescriptions: No Action fexofenadine [Ruby Allergy] 60 mg tablet 60 mg PO DAILY aspirin 81 mg tablet 81 mg PO DAILY Classic 28 mg iron- 800 mcg tablet PO DAILY Abrysvo (PF) 120 mcg/0.5 mL recon soln 0.5 ml IM ONCE Qty: 1 0RF Rx Instructions: as a single dose Discharge Instructions Activity:: Pelvic rest Equipment/Supplies:: No Equipment Needed Diet:: As Tolerated Discharge Orders Discharge Orders: Discharge Order (Routine); Ordered 12/06/24 Ordered By: Chrissy Valdez OB:DS Summary Summary Vaginal Delivery Method: Spontaneaous Episiotomy Description: None Laceration Description: Perineal Laceration Extension: First Degree Contraception Discussed Contraception Discussed: Yes, [place] Infant Gender-Baby A: Female weight: 7 lb 3.875 oz Status at Discharge Functional status at discharge: independent ambulation Overall status at discharge: patient is back to baseline Mental Status: mental status grossly normal Speech and Movement: speech and movement normal Mood: congruent mood Affect: normal affect Exam Physical Exam Vital signs: Temp Pulse Resp BP Pulse Ox 98 F 102 H 18 109/75 95 12/05/24 19:30 12/05/24 19:30 12/05/24 19:30 12/05/24 19:30 12/05/24 00:14 Constitutional Comments: See physical exam from progress note dated 12/06/2024 [facility] All Active Problems (Updated 12/05/24 @ 13:52 by Chrissy Valdez DO) Normal spontaneous vaginal delivery (Acute) Normal spontaneous vaginal delivery, female infant Mavis 12/05/2024. Labor induction at term due to AMA. Encounter for induction of labor (Acute) Leukocytosis, unspecified (Acute) AMA (advanced maternal age) multigravida 35+ (Acute) (Acute) Medical History (Updated 12/05/24 @ 13:52 by Chrissy Valdez DO) High cholesterol while on OCs.HDL high 200s. 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 Sexually active: Yes Current gender identity: female What is your relationship status?: Panel score (0-1 are the most socially isolated patients): 1 What type of physical activity do you participate in: regular exercise Duration: 30-45 minutes/day Frequency: daily Seatbelt use: always Helmet use: Yes Do you feel safe at home: Yes History History 3 Para 0 Hx # Term Pregnancies Multiple births Hx # Pregnancies Ectopic pregnancies AB induced Hx Number of Living Children AB spontaneous 2 DS: Data Vitals/I&O Vitals and I&O: Vital Signs Temperature 98 F 12/05/24 19:30 Temperature Source Oral 12/05/24 19:30 Pulse 102 H 12/05/24 19:30 Pulse Rhythm Regular 12/05/24 19:30 Respiratory Rate 18 12/05/24 19:30 Respiratory Depth Normal 12/05/24 07:36 Blood Pressure 109/75 12/05/24 19:30 Blood Pressure Mean 86 12/05/24 19:30 Pulse Oximetry 95 12/05/24 00:14 Oxygen Delivery Method Room Air 12/04/24 13:04 Oxygen Flow Rate 0 12/04/24 13:04 Pain Level 0 12/05/24 11:37 Intake & Output 12/05/24 12/05/24 12/06/24 11:59 23:59 11:59 Intake Total 1000 / 1000 Output Total 450 / 2190 1740 / 2190 Balance 550 / -1190 -1740 / -1190 Weight 186 lb Intake: IV 1000 / 1000 Output: Urine 450 / 1750 1300 / 1750 Blood 440 / 440 Other: Urine Color Yellow Pale Urine Appearance Clear
== END 2024-12-06 17:07 | disposition home or self-care (01) | DRG 807 ==
PROVIDERS: Admitting Provider Obstetrics & Gynecology; Visit Provider Obstetrics & Gynecology
DX: O75.89 Other specified complications of labor and delivery (principal); Z37.0 Single live birth; Z3A.39 39 weeks gestation of pregnancy; Z14.8 Genetic carrier of other disease; O43.193 Other malformation of placenta, third trimester; O71.4 Obstetric high vaginal laceration alone
CPT/HCPCS: 59200; 86850; 86900; 86901; 85025; J3490